=== PATIENT | male | born 1965 | race Caucasian/White ===

== ENCOUNTER 2023-02-14 13:01 | Emergency (ER) | payer MEDICAID, OTHER ==
[~2023-02-14] VITALS: Ht 190.5 cm; Wt 176.9 kg
[~2023-02-14 13:01] MED LIST: AMLO5TAB PO; ASPI-1822 PO; DOXA-37 PO; LISI-486 PO; MULT-298 PO
[2023-02-14 13:41] VITALS: BP 157/91; PULSE 79; RESP 16; TEMP 98; O2SAT 98
[2023-02-14] MEDS ORDERED: IBUP-2213 PO ×2 (15:27→15:50)
== END 2023-02-14 15:48 | disposition home or self-care (01) ==
LOC: MED 13:01
DX: M77.51 Other enthesopathy of right foot and ankle (principal); M72.2 Plantar fascial fibromatosis; I10 Essential (primary) hypertension; Z79.899 Other long term (current) drug therapy
CPT/HCPCS: 73630; 99283